=== PATIENT | male | born 1995 | race Caucasian/White ===

== ENCOUNTER → 2016-12-27 | Outpatient (CLI) | payer MEDICAID, OTHER ==
[2016-12-27 14:24] LABS: Basophils # (A) 0.1 k/uL (0-0.2); Basophils % (A) 1 %; CH 32.8; CHCM 35.8; Eosinophils # (A) 0.5 k/uL (0-0.7); Eosinophils % (A) 5 %; HCT 44.8 % (39.0-53.0); HDW 2.83; HGB 15.7 gm/dL (13.0-17.5); Luc # (Auto) 0.22; Luc % (Auto) 2; Lymphocytes # (A) 3.8 k/uL (1.0-4.8); Lymphocytes % (A) 42 %; MCH 32.3 pg (25.0-35.0); MCHC 35.1 g/dL (31.0-37.0); MCV 91.9 fL (80.0-100.0); Mean Platelet Volume 7.5; Monocytes # (A) 0.5 k/uL (0-1.0); Monocytes % (A) 5 %; Neutrophils % (A) 44 %; RBC 4.88 m/uL (4.30-5.90); WBC (Perox) 9.25
[2016-12-27 14:57] LABS: Bilirubin, Delta 0.3 mg/dL (0.0-0.2); Total Bilirubin 0.5 mg/dL (0.2-1.3); Total Protein 7.6 g/dL (6.3-8.2)
[2016-12-31 15:03] LABS: Hepatits C Virus RNA, Quant <12 IU/mL (<12); LOG HCV IU/mL <1.08 (<1.08)
== END | disposition home or self-care (01) ==
LOC: LABWHC1 13:35
PROVIDERS: ATTEND Physician Assistant
DX: B18.2 Chronic viral hepatitis C (principal)
CPT/HCPCS: 36415; 80076; 85025; 87522

== ENCOUNTER 2017-05-11 11:05 | Inpatient (IN) | payer MEDICAID, OTHER ==
--- NOTE | 2017-05-11 11:55 | ED ---
General Adult HPI - General Chief complaint: Psychiatric Symptoms Stated complaint: Mental Health Time Seen by Provider: 05/11/17 11:07 Source: patient, EMS, RN notes reviewed Mode of arrival: EMS - History of Present Illness Initial comments: 22 yo male presents to the ER with cc of hearing voices and suicidal thoughts. Patient states he was suicidal earlier he thought about these risks. He states that he still does have some thoughts but no plan. Patient states that he is hearing voices he states he is a constant chatter. He states the voices were telling him to hurt himself. Patient denies any homicidal ideation. Patient states he has been taking his medications. Patient states that he was concerned because of hearing voices and he just does not seem right we thought that he should be evaluated. Patient denies any recent fever, chills, shortness of breath, chest pain, back pain, abdominal pain, nausea vomiting, numbness or tingling, dysuria or hematuria, constipation or diarrhea, headaches or visual changes, or any other current symptoms. - Related Data Home Medications Medication Instructions Recorded Confirmed traMADol HCL [Ultram] 50 mg PO QID PRN 02/21/16 07/06/16 Previous Rx's Medication Instructions Recorded Gabapentin [Neurontin] 800 mg PO QID #60 tablet 06/19/16 Melatonin 6 mg PO HS tablet 06/19/16 Nicotine 21Mg/24Hr Patch [Habitrol] 1 patch TRANSDERM DAILY #14 patch 06/19/16 OLANZapine [ZyPREXA] 20 mg PO HS #30 tablet 06/19/16 buPROPion SR [Wellbutrin SR] 150 mg PO BID #60 tablet.er 06/19/16 Allergies Allergy/AdvReac Type Severity Reaction Status Date / Time No Known Allergies Allergy Verified 07/06/16 19:54 Review of Systems ROS Statement: Those systems with pertinent positive or pertinent negative responses have been documented in the HPI. ROS Other: All systems not noted in ROS Statement are negative. Past Medical History Past Medical History: Seizure Disorder Additional Past Medical History / Comment(s): autism/asperger's syndrome, scoliosis, hep c, history of IV drug abuse, pt states that the medication trileptal gave him sz at age 15 none since then History of Any Multi-Drug Resistant Organisms: None Reported Past Surgical History: Tonsillectomy Additional Past Anesthesia/Blood Transfusion Reaction / Comment(s): No history of prior surgeries. No previous blood transfusions. Past Psychological History: ADD/ADHD, Depression, Schizophrenia Smoking Status: Current every day smoker Past Alcohol Use History: None Reported Past Drug Use History: Cocaine, Heroin, IV Drug Use, Opiates - Past Family History Father Additional Family Medical History / Comment(s): Father is 52 years of age and has history of depression and fibromyalgia. Mother Additional Family Medical History / Comment(s): Mother is age 56 with history of anxiety. Brother(s) Additional Family Medical History / Comment(s): He has 2 brothers with no major medical problems. Patient has 1 sister with no major medical problems. He does not have any sisters. General Exam General appearance: alert, in no apparent distress Head exam: Present: atraumatic, normocephalic, normal inspection ENT exam: Present: normal exam, mucous membranes moist Neck exam: Present: normal inspection. Absent: tenderness, meningismus, lymphadenopathy Respiratory exam: Present: normal lung sounds bilaterally. Absent: respiratory distress, wheezes, rales, rhonchi, stridor Cardiovascular Exam: Present: regular rate, normal rhythm, normal heart sounds. Absent: systolic murmur, diastolic murmur, rubs, gallop, clicks GI/Abdominal exam: Present: soft, normal bowel sounds. Absent: distended, tenderness, guarding, rebound, rigid Neurological exam: Present: alert, oriented X3 Psychiatric exam: Present: suicidal ideation. Absent: homicidal ideation Skin exam: Present: warm, dry, intact, normal color. Absent: rash Course Vital Signs 05/11/17 11:22 Temperature 98.6 F Pulse Rate 120 H Respiratory 16 Rate Blood Pressure 145/74 O2 Sat by Pulse 99 Oximetry Medical Decision Making - Medical Decision Making 22-year-old male presents to the emergency department with a chief complaint of hearing voices and suicidal ideation. At this time patient does not have a plan. This time patient does not appear to be suffering from any acute medical emergencies. Patient is cleared to be evaluated by psychiatry. At this time patient was evaluated. This time patient will be admitted to psychiatric services. Patient is in agreement with this plan. Disposition Clinical Impression: Acute psychosis Disposition: TRANSFER TO PSYCH HOSP/UNIT Referrals: Stuart Meza MD [Primary Care Provider] - 1-2 days Time of Disposition: 13:06
[2017-05-11] MEDS ORDERED: LORazepam 1 MG TAB PO STA (13:48)
[2017-05-11] MEDS ORDERED: MAGNESIUM HYDROXIDE 2,400 MG/10 ML CUP PO PRN (13:51)
[2017-05-11] MEDS ORDERED: ACETAMINOPHEN TAB 325 MG TAB PO PRN (13:51)
[2017-05-11] MEDS ORDERED: MAG HYDROX/AL HYDROX/SIMETH 30 ML CUP PO PRN (13:51)
[2017-05-11] MEDS ORDERED: ZIPRASIDONE 20 MG VIAL IM PRN (13:51)
[2017-05-11] MEDS: GABAPENTIN 400 MG CAP PO SCH ×2 (17:10→21:38)
[2017-05-11] MEDS: MELATONIN 3 MG TABLET PO SCH (21:38)
[2017-05-11] MEDS: OLANZapine 10 MG TAB PO SCH (21:38)
[2017-05-11] MEDS: buPROPion SR 150 MG TABLET.ER PO SCH (21:38)
[2017-05-12] MEDS: GABAPENTIN 400 MG CAP PO SCH ×4 (08:15→21:15)
[2017-05-12] MEDS: NICOTINE 14MG/24HR PATCH TRANSDERM SCH (08:15)
[2017-05-12] MEDS: buPROPion SR 150 MG TABLET.ER PO SCH ×2 (08:15→20:45)
[2017-05-12] MEDS: traMADol 50 MG TAB PO PRN ×3 (08:16→18:25)
[2017-05-12 10:14] LABS: Basophils # (A) 0.1 k/uL (0-0.2); Basophils % (A) 1 %; CH 31.4; Eosinophils # (A) 0.3 k/uL (0-0.7); Eosinophils % (A) 2 %; HCT 49.5 % (39.0-53.0); HDW 2.58; HGB 16.2 gm/dL (13.0-17.5); Luc # (Auto) 0.16; Luc % (Auto) 1; Lymphocytes # (A) 2.1 k/uL (1.0-4.8); Lymphocytes % (A) 18 %; MCH 31.3 pg (25.0-35.0); MCHC 32.7 g/dL (31.0-37.0); MCV 95.7 fL (80.0-100.0); Mean Platelet Volume 7.4; Monocytes # (A) 0.3 k/uL (0-1.0); Monocytes % (A) 3 %; Neutrophils # (A) 8.9 k/uL (1.3-7.7); Neutrophils % (A) 75 %; RBC 5.18 m/uL (4.30-5.90); RDW 12.6 % (11.5-15.5); WBC 11.9 k/uL (3.8-10.6); WBC (Perox) 12.55
[2017-05-12 10:51] LABS: ALT 27 U/L (21-72); AST 27 U/L (17-59); Alkaline Phosphatase 101 U/L (38-126); Anion Gap 18 mmol/L; Blood Urea Nitrogen 17 mg/dL (9-20); Calcium 9.8 mg/dL (8.4-10.2); Carbon Dioxide 19 mmol/L (22-30); Chloride 104 mmol/L (98-107); Glucose 67 mg/dL (74-99); Non-African American GFR(MDRD) >60 (>60 ml/min/1.73 sqM); Potassium 4.5 mmol/L (3.5-5.1); Sodium 141 mmol/L (137-145)
[2017-05-12] MEDS ORDERED: METHYLPHENIDATE HCL 10 MG TAB PO SCH (12:00)
--- NOTE | 2017-05-12 16:05 | P.CON ---
Consult Note - . Consult date: 05/12/17 Assessment/Plan:: Chief complaint/reason for consult medical management and evaluation History of presenting illness. 22-year-old male who was seen and evaluated examined at the psychiatric unit while covering for Dr. Stuart Meza, 22 yo male presents to the ER with cc of hearing voices and suicidal thoughts. Patient states he was suicidal earlier he thought about these risks. He states that he still does have some thoughts but no plan. Patient states that he is hearing voices he states he is a constant chatter. He states the voices were telling him to hurt himself. Patient denies any homicidal ideation. Patient states he has been taking his medications. Patient states that he was concerned because of hearing voices and he just does not seem right we thought that he should be evaluated. Patient denies any recent fever, chills, shortness of breath, chest pain, back pain, abdominal pain, nausea vomiting, numbness or tingling, dysuria or hematuria, constipation or diarrhea, headaches or visual changes, or any other current symptoms. - Related Data Home Medications Medication Instructions Recorded Confirmed traMADol HCL [Ultram] 50 mg PO QID PRN 02/21/16 07/06/16 Previous Rx's Medication Instructions Recorded Gabapentin [Neurontin] 800 mg PO QID #60 tablet 06/19/16 Melatonin 6 mg PO HS tablet 06/19/16 Nicotine 21Mg/24Hr Patch [Habitrol] 1 patch TRANSDERM DAILY #14 patch 06/19/16 OLANZapine [ZyPREXA] 20 mg PO HS #30 tablet 06/19/16 buPROPion SR [Wellbutrin SR] 150 mg PO BID #60 tablet.er 06/19/16 Allergies Allergy/AdvReac Type Severity Reaction Status Date / Time No Known Allergies Allergy Verified 07/06/16 19:54 Review of Systems ROS Statement: Those systems with pertinent positive or pertinent negative responses have been documented in the HPI. ROS Other: All systems not noted in ROS Statement are negative. Past Medical History Past Medical History: Seizure Disorder Additional Past Medical History / Comment(s): autism/asperger's syndrome, scoliosis, hep c, history of IV drug abuse, pt states that the medication trileptal gave him sz at age 15 none since then History of Any Multi-Drug Resistant Organisms: None Reported Past Surgical History: Tonsillectomy Additional Past Anesthesia/Blood Transfusion Reaction / Comment(s): No history of prior surgeries. No previous blood transfusions. Past Psychological History: ADD/ADHD, Depression, Schizophrenia Smoking Status: Current every day smoker Past Alcohol Use History: None Reported Past Drug Use History: Cocaine, Heroin, IV Drug Use, Opiates - Past Family History Father Additional Family Medical History / Comment(s): Father is 52 years of age and has history of depression and fibromyalgia. Mother Additional Family Medical History / Comment(s): Mother is age 56 with history of anxiety. Brother(s) Additional Family Medical History / Comment(s): He has 2 brothers with no major medical problems. Patient has 1 sister with no major medical problems. He does not have any sisters. General Exam Blood pressure is 110/56, respiratory rate 16 pulse 75 temperature 90.7 saturation is 96% to 97% General appearance: alert, in no apparent distress Head exam: Present: atraumatic, normocephalic, normal inspection ENT exam: Present: normal exam, mucous membranes moist Neck exam: Present: normal inspection. Absent: tenderness, meningismus, lymphadenopathy Respiratory exam: Present: normal lung sounds bilaterally. Absent: respiratory distress, wheezes, rales, rhonchi, stridor Cardiovascular Exam: Present: regular rate, normal rhythm, normal heart sounds. Absent: systolic murmur, diastolic murmur, rubs, gallop, clicks GI/Abdominal exam: Present: soft, normal bowel sounds. Absent: distended, tenderness, guarding, rebound, rigid Neurological exam: Present: alert, oriented X3 Psychiatric exam: Present: suicidal ideation. Absent: homicidal ideation Skin exam: Present: warm, dry, intact, normal color. Absent: rash Labs reviewed white cell count is 11,900 hemoglobin and hematocrit 16 and 49, platelet count 311,000 BUN/creatinine 17 and 1.09 sodium 41 potassium 4.5 glucose 67, TSH is 1.1 Impression acute psychosis History of nicotine abuse Borderline hyperglycemia Stream mood disorder depression History of seizure disorder along with autism and Asperger's syndrome Hepatitis C with history of IV drug use From medical standpoint and will maintain and observe patient closely patient will require optimize psychiatric care will follow clinical course closely we' ll be available as needed
--- NOTE | 2017-05-12 16:41 | HP ---
HISTORY AND PHYSICAL DATE OF SERVICE: 05/12/2017. IDENTIFYING DATA: The patient is a 22-year-old male. He resides with his parents. He was admitted through the emergency room for evaluation. CHIEF COMPLAINT: The was hearing voices. He had suicide thoughts. He felt voices were telling him to hurt himself. He has had long-term problems with psychiatric issues. HISTORY OF PRESENTING ILLNESS: The patient has a diagnosis of autistic spectrum disorder. He has also been diagnosed with schizoaffective disorder. Social anxiety disorder and substance use disorder including cannabis, opioids, amphetamines and cocaine. he also has been diagnosed with ADHD. He has been followed through [facility]. His last medication appointment at [facility] was August 12, [address] Clay, Dr. Clay documented that he was doing fairly well. He acknowledged some craving of junk food. He was not having hallucinations, thoughts of self-harm or other mood difficulties. He was reporting smoking marijuana "occasionally but denies other street drugs or alcohol." Dr. Clay documented a past history of "opioid, amphetamine, cocaine and marijuana use, severe." He had used substances including heroin, cocaine and crystal meth and marijuana on a regular basis. He had started using marijuana and misusing Adderall around age 18. Along with that, he was taking cough syrup abusively. He acknowledges that when he does not take his medications appropriately he would turn to abusive substances to "self medicate." The patient reports that since August for most of this year he was doing fairly well. He described this as being where about 6 days of a typical week he had a reasonable mood. He functioned okay. He was calm and generally functioning well on a day-to-day basis. About once a week he would get into feeling distressed. He could really identify what would set that off. It was on those days that he might hear voices. He said for the most part, it was a mumbling kind of voice where he could not really discern the words. He said in the last month or 2 things have gotten worse for him. He identified as precipitants that he has had 3 friends in the last month. He acknowledges that all three of the friends were people who abused drugs and that were part of the social network when he abused drugs. He said they all of drug overdose. He currently has been receiving psychotropic medications from his primary care physician Dr. Meza. Current psychotropic medications include: 1. Wellbutrin SR 150 mg 3 times a day. 2. Zyprexa 20 mg a day. 3. Ritalin which had been 10 mg twice a day. Though was increased in the last week to 20 mg twice a day. 4. He also takes Neurontin 800 mg 4 times a day which he says seems to help calm him down. 5. In addition, he takes tramadol 50 mg 3 times a day for chronic back pain which he relates to scoliosis. He notes that he has trouble with social function. He says he has not been able to think about work because he feels too much stress when he gets into social settings. He says when he takes his methylphenidate it seems to help him feel calmer give him more energy and help him focus. He notes that his Wellbutrin had been increased from b.i.d. up to t.i.d., a few months ago. One factor relating to his hospitalization is that his parents were gone for the weekend and in that time it seemed to cause him quite a bit of distress to where he got into the hearing of voices and thinking about self-harm. He is admitted for further evaluation. SUBSTANCE USE HISTORY: As above. PAST MEDICAL HISTORY: The patient reports scoliosis. Further medical history and review of systems as per medical consultation. FAMILY AND SOCIAL HISTORY: The patient resides with his mother and father. He left school in the 10th grade. He said he left school because he struggled too much with the social situation. He says he does not do well with groups of people where he has to interact. He currently is not working though is applying for disability. He notes that he has an excessive appetite particularly in the evening time. He then will overeat and then it causes him trouble sleeping. He also uses an excessive amount of caffeine. MENTAL STATUS EXAM: Patient was somewhat unkempt in appearance. Eye contact was fair. He would look with good eye contact some of the time and then would look down or away at other times. He answered questions with direct responses. His thoughts were clear, he was somewhat spontaneous and interactive. His affect was somewhat blunted. He had an anxious manner. His mood was dysphoric. He seemed moderately distressed. On cognitive exam, he was oriented x3 and alert. He did make an effort to answer formal cognitive questions though he appeared to give a fairly good history of current and past events. Insight was fair. Judgment uncertain. Fund of knowledge and intellectual level average to mildly below average. PHYSICAL EXAMINATION: Physical exam as per medical consultation. DIAGNOSTIC STUDIES: CBC and comprehensive metabolic profile were unremarkable. Hemoglobin 16.2, MCV 95.7, creatinine 1.1. Glucose 67, TSH 1.15. ASSESSMENT: This 22-year-old male is diagnosed with mood disorder, likely impacted by his underlying autistic spectrum disorder. A significant factor may be simply the absence of his parents over the weekend. He has had past substance abuse issues which apparently have been contained. The patient being absent abstinent from substances. Social function appears quite limited. Social supports uncertain. Strengths include that the patient has insight about some of his difficulties. Weakness includes struggles with social function. DIAGNOSES: 1. Mood disorder, with psychotic features. 2. Rule out schizoaffective disorder. 3. Autistic spectrum disorder. 4. Substance use disorder including multiple substances possibly in remission. 5. Excessive caffeine use. 6. ADHD. 7. Scoliosis. RECOMMENDATIONS: Patient will be admitted for comprehensive medical psychiatric and psychosocial evaluation. We will engage the patient in individual and group therapeutic activities. I will continue the patient on his outpatient medications including Wellbutrin SR 150 mg 3 times a day. Zyprexa 20 mg a day. Ritalin 20 mg twice a day. He also will continue tramadol 50 mg 3 times a day and Neurontin 800 mg 4 times a day. There are significant concerns about his ongoing use of Ritalin as well as tramadol with the patient may experience as benefit from these medications is simply the short-term reduction in withdrawal symptoms with each dose relating to the inter dose. Of declining FREIGHT BOOKER levels of these medications, I would strongly encourage outpatient services to taper the patient off of both Ritalin and tramadol. I would work with the patient to engage in non pharmacologic treatment to manage his back issues. Along with that I would anticipate difficulty with focus and concentration in the short run. If he does withdrawal off tramadol and Ritalin I would look beyond 6-8 weeks for overall improvement. I had an extensive discussion with the patient in regards to getting on a program of frequent brief walks throughout the day to help improve body mechanics. We talked about areas where the patient might begin to find some direction in his life. He says he does have some artistic talents and might be able to utilize those possibly even within [facility] to support an art therapy process. We talked about his use of electronic devices to help improve his own ability to manage medications such as a cell phone beau which also might allow him to develop some skills that could translate into work opportunities. We talked about the option of some type of work situation that would allow him to be in a comfortable environment without the stress of significant social pressures. We will set up a family meeting with the patient's parents. I would possibly consider the use of clozapine if he does not stabilize with the current medications. Unfortunately if the patient continues on Ritalin and tramadol, that is likely to exacerbate some of his mood difficulties as well as social anxiety. We will coordinate with outpatient resources for treatment and discharge planning. SAMPSON / DONNY: [id number] /
[2017-05-12] MEDS: MELATONIN 3 MG TABLET PO SCH (20:45)
[2017-05-12] MEDS: OLANZapine 10 MG TAB PO SCH (20:45)
[2017-05-13] MEDS: NICOTINE 14MG/24HR PATCH TRANSDERM SCH (08:25)
[2017-05-13] MEDS: buPROPion SR 150 MG TABLET.ER PO SCH ×2 (08:25→21:06)
[2017-05-13] MEDS: GABAPENTIN 400 MG CAP PO SCH ×4 (08:25→21:06)
[2017-05-13] MEDS: traMADol 50 MG TAB PO PRN ×3 (08:27→21:07)
[2017-05-13] MEDS ORDERED: METHYLPHENIDATE HCL 10 MG TAB PO SCH (12:30)
--- NOTE | 2017-05-13 13:09 | P.PN ---
Progress Note - Text Progress Note Date: 05/13/17 22yo CM admitted on 05/11/17 after presenting with c/o AH telling him to hurt himself. This was also in the context of gradually declining mood over the course of a month secondary to grief related to the of three friends. He lives with his parents and they were absent from the home over the weekend that patient was admitted. Last 24hrs: Upon presentation this morning, pt states that he is in a "good" mood and requesting to be discharged. Reports that he feels his reason for hospitalization was "dealing with grief and anger". He states that he is no longer experiencing AH and/or SI. He has been sleeping fairly well and compliant with his medications. States that he was previously taking Ritalin 20mg BID; however, CANDACE Hurt spoke with a brewery representative from pt's pharmacy ([facility]) as well as our hospital pharmacy and it was stated that pt was prescribed Ritalin 10mg BID from his PCP. He is attending daily groups. MSE: Pt appears stated age. He is fairly well-groomed. Pt ambulating well without assistance. Behavior is cooperative but is somewhat child-like. His speech is of normal rate and volume. Pt has good eye contact. Mood is "good" and affect appropriate. He denies SI at this time. Thought process is linear and logical. Memory grossly intact. Oriented x 3. Assessment: 1. Autistic Spectrum Disorder 2. Unspecified mood disorder 3. ADHD 4. h/o Substance Use Disorder 5. Scoliosis Plan: Start Ritalin 10mg PO BID as previously prescribed. Continue Melatonin and Olanzapine. Discuss discharge planning with treatment team. SW scheduled family meeting for today at 1pm. Possible discharge tomorrow if family meeting goes well. Continue to monitor for safety. Encourage participation in daily groups and acclimation to current milieu. Agree with Dr. Bangura's recommendation for patient to eventually be tapered off of stimulant and narcotic pain medication on an outpatient basis due to his h/o substance abuse.
[2017-05-13] MEDS: MELATONIN 3 MG TABLET PO SCH (21:06)
[2017-05-13] MEDS: OLANZapine 10 MG TAB PO SCH (21:06)
[2017-05-14 06:27] VITALS: BP 93/46; PULSE 80; RESP 12; TEMP 97.8
[2017-05-14] MEDS ORDERED: METHYLPHENIDATE HCL 10 MG TAB PO SCH (07:30)
[2017-05-14] MEDS: buPROPion SR 150 MG TABLET.ER PO SCH (08:05)
[2017-05-14] MEDS: GABAPENTIN 400 MG CAP PO SCH (08:05)
[2017-05-14] MEDS: NICOTINE 14MG/24HR PATCH TRANSDERM SCH (08:05)
[2017-05-14] MEDS: traMADol 50 MG TAB PO PRN (08:07)
--- NOTE | 2017-05-14 16:58 | P.PN ---
Progress Note - Text Progress Note Date: 05/14/17 22yo CM admitted on 05/11/17 after presenting with c/o AH telling him to hurt himself. This was also in the context of gradually declining mood over the course of a month secondary to grief related to the of three friends. He lives with his parents and they were absent from the home over the weekend that patient was admitted. Last 24hrs: Upon presentation this morning, pt states that his mood continues to be "good". He is looking forward to being discharged. SW spoke with patient's mother yesterday and she was in agreement with plan to discharge. He denies auditory hallucinations and suicidal ideations. He has been sleeping well and compliant with his medications. No reported behavioral disturbances overnight. He has been attending daily groups. MSE: Pt appears stated age. He is fairly well-groomed. Pt ambulating well without assistance. Behavior is cooperative but is somewhat child-like. His speech is of normal rate and volume. Pt has good eye contact. Mood is "good" and affect appropriate. He denies SI at this time. Thought process is linear and logical. Memory grossly intact. Oriented x 3. Assessment: 1. Autistic Spectrum Disorder 2. Unspecified mood disorder 3. ADHD 4. h/o Substance Use Disorder 5. Scoliosis Plan: Discharge patient to home with mother. Continue current medications as prescribed. Consider tapering off of pain medications and stimulants on an outpatient basis.
--- NOTE | 2017-05-14 17:09 | P.DS ---
Providers Date of admission: 05/11/17 13:47 Expected date of discharge: 05/14/17 Attending physician: Maura Shirley DO Consults: 05/11/17 13:51 Consult Physician Routine Consulting Provider: Stuart Meza Reason/Comments: follow up H & P Do you want consulting provider notified?: Yes Primary care physician: Marco Antonio Bangura - Discharge Diagnosis(es) (1) Autism spectrum disorder Status: Acute (2) Unspecified mood [affective] disorder Status: Acute Hospital Course: Upon admission, patient was continued on his home medication regimen of Wellbutrin SR 150mg TID, Tramadol 50mg TID and Neurontin 800mg QID. There was some confusion regarding his Ritalin dose as pt stated that he had been prescribed 20mg BID; however, after speaking with a outside sales representative insurance from [facility] and the hospital pharmacy, pt's last prescribe dose was 10mg BID. Therefore, this dose was continued during hospitalization. There was some concern of long-term use of stimulants and pain medications with this patient given his h/o substance use in the past and it was recommended that patient be tapered off of these medications on an outpatient basis in the future. Shortly after admission, pt stated that he no longer had suicidal ideation and regretted his decision to be admitted. Patient stated that he felt his anger and grief caused him to have the episode of SI and AH. He continued to adamantly deny active plan or intent. Also, denies experiencing auditory hallucinations throughout his hospital stay. Patient was cooperative while on the unit and did not display any behavioral disturbances. He regularly attended group activities, slept well and had a good appetite. At this time patient is stable for discharge to home and strongly encourage psychiatric follow-up for further medication managment as well as individual psychotherapy to aide in fostering of more adaptive coping skills. Patient Condition at Discharge: Good Plan - Discharge Summary New Discharge Prescriptions: New Melatonin 6 mg PO HS #60 tab OLANZapine [ZyPREXA] 20 mg PO HS #30 tab Continue traMADol HCL [Ultram] 50 mg PO TID PRN PRN Reason: Pain Gabapentin [Neurontin] 800 mg PO QID #60 tablet Methylphenidate HCl [Ritalin] 10 mg PO BID buPROPion XL [Wellbutrin XL] 150 mg PO TID #90 Discontinued OLANZapine [ZyPREXA] 20 mg PO HS #30 tablet Discharge Medication List traMADol HCL [Ultram] 50 mg PO TID PRN 02/21/16 [History] Gabapentin [Neurontin] 800 mg PO QID #60 tablet 06/19/16 [Rx] Methylphenidate HCl [Ritalin] 10 mg PO BID 05/11/17 [History] Melatonin 6 mg PO HS #60 tab 05/14/17 [Rx] OLANZapine [ZyPREXA] 20 mg PO HS #30 tab 05/14/17 [Rx] buPROPion XL [Wellbutrin XL] 150 mg PO TID #90 05/14/17 [Rx] Follow up Appointment(s)/Referral(s): [facility] [Outside] - 05/20/17 3:30 pm (05-20-17 @ 3:30 with Shell Suarez. ) Stuart Meza MD [STAFF PHYSICIAN] - 1-2 days Patient Instructions/Handouts: Depression (GEN), Brief Psychotic Disorder (GEN) , Suicide Prevention for Adults (GEN) Activity/Diet/Wound Care/Special Instructions: Activity and diet as tolerated. Avoid the use of street drugs and alcohol. Take all medications as prescribed. When you are in need of refills on your medications please contact your medical provider and/or outpatient psychiatrist to have this done. Please go to your scheduled outpatient appointment for aftercare treatment. If symptoms return or become worse please call the crisis line at and/or go to the nearest emergency room for an evaluation. Discharge Disposition: HOME SELF-CARE
== END 2017-05-14 09:50 | disposition home or self-care (01) | DRG 753 ==
LOC: EC 11:05 → 3MHU 13:47
PROVIDERS: ADMIT Psychiatry & Neurology Psychiatry; ATTEND Psychiatry & Neurology Psychiatry
DX: F39 Unspecified mood [affective] disorder (principal); M41.9 Scoliosis, unspecified; R45.851 Suicidal ideations; F23 Brief psychotic disorder; F25.9 Schizoaffective disorder, unspecified; B19.20 Unspecified viral hepatitis C without hepatic coma; F12.90 Cannabis use, unspecified, uncomplicated; F17.200 Nicotine dependence, unspecified, uncomplicated; F40.10 Social phobia, unspecified; F84.5 Asperger's syndrome; F90.9 Attention-deficit hyperactivity disorder, unspecified type; G40.909 Epilepsy, unspecified, not intractable, without status epilepticus; G89.29 Other chronic pain; R73.9 Hyperglycemia, unspecified; Z79.899 Other long term (current) drug therapy; Z81.8 Family history of other mental and behavioral disorders
CPT/HCPCS: 80053; 82075; 84443; 85025; 99285

== ENCOUNTER 2018-01-23 13:15 | Emergency (ER) | payer OTHER ==
[2018-01-23 13:22] VITALS: RESP 18; TEMP 98.5
[2018-01-23] MEDS ORDERED: ACETAMINOPHEN TAB 500 MG TAB PO STA (14:36)
--- NOTE | 2018-01-23 15:03 | XR ---
EXAMINATION TYPE: XR ankle complete LT DATE OF EXAM: 01/23/2018 COMPARISON: NONE HISTORY: Pain FINDINGS: Three views of the ankle demonstrate the ankle mortise to be intact and symmetric. The joint spaces are preserved. The osseous structures are intact. Sclerotic density involving the calcaneus compati ble with bone island. IMPRESSION: 1. No definite acute fracture or dislocation, if symptoms persist follow-up study in 7 to 10 days wou ld be suggested.
--- NOTE | 2018-01-23 15:04 | XR ---
EXAMINATION TYPE: XR foot complete LT DATE OF EXAM: 01/23/2018 COMPARISON: NONE HISTORY: Pain TECHNIQUE: Three views are submitted. FINDINGS: The osseous structures are intact. There is no acute fracture or dislocation. Joint spaces are p reserved. Sclerotic density overlying the calcaneus compatible with bone IMPRESSION: 1. No acute fracture or dislocation. If symptoms persist, follow-up exam in 7 to 10 days could be ob tained.
--- NOTE | 2018-01-23 15:06 | XR ---
EXAMINATION TYPE: XR hand complete RT DATE OF EXAM: 01/23/2018 COMPARISON: NONE HISTORY: Pain TECHNIQUE: Three views are submitted. FINDINGS: The osseous structures are intact. The joint spaces are preserved and there is no acute fracture or dislocation. Sclerotic density overlying the scaphoid likely related to bone island. IMPRESSION: 1. No definite acute fracture or dislocation if symptoms persist, follow-up study in 7 to 10 days wo uld be suggested
--- NOTE | 2018-01-23 15:06 | XR ---
EXAMINATION TYPE: XR wrist complete RT DATE OF EXAM: 01/23/2018 CLINICAL HISTORY: Pain after fall injury TECHNIQUE: Frontal, lateral, scaphoid, and oblique images of the right wrist are obtained. COMPARISON: Same day right hand x-ray. FINDINGS: There is no acute fracture/dislocation evident in the right wrist. The joint spaces in th e right wrist appear within normal limits. The overlying soft tissue appears unremarkable. Nonspecif ic sclerotic lesion radial aspect distal scaphoid favors benign bone island. IMPRESSION: There is no acute fracture or dislocation in the right wrist.
--- NOTE | 2018-01-23 16:16 | ED ---
Fall HPI - General Chief Complaint: Fall Stated Complaint: Fall Time Seen by Provider: 01/23/18 14:06 Source: EMS Mode of arrival: EMS - History of Present Illness Initial Comments: 22-year-old male presenting for evaluation of right wrist/hand pain and left foot pain. He states that he was in his garage walking outside however the lites returned off and he tripped over some trash cans and fell forward. He denies hitting his head or neck and states there are no other injuries with the exception of the right hand and left ankle. He believes that he twisted the ankle and he fell on the hand. He has been taking Motrin and Tylenol and marijuana for pain control however states that in the 2 days since his abdomen he is continued to have pain. Denies decreased range of motion of either extremity however he does have erythema to the dorsal aspect of the right hand. Denies any other abnormalities. - Related Data Home Medications Medication Instructions Recorded Confirmed traMADol HCL [Ultram] 50 mg PO TID PRN 02/21/16 01/23/18 Dextroamphetamine/Amphetamine 30 mg PO BID 01/23/18 01/23/18 [Adderall] Previous Rx's Medication Instructions Recorded Gabapentin [Neurontin] 800 mg PO QID #60 tablet 06/19/16 OLANZapine [ZyPREXA] 20 mg PO HS #30 tab 05/14/17 Allergies Allergy/AdvReac Type Severity Reaction Status Date / Time No Known Allergies Allergy Verified 01/23/18 13:46 Review of Systems ROS Statement: Those systems with pertinent positive or pertinent negative responses have been documented in the HPI. ROS Other: All systems not noted in ROS Statement are negative. Constitutional: Denies: fever, chills Eyes: Denies: eye pain, vision change ENT: Denies: ear pain, throat pain Respiratory: Denies: cough, dyspnea Cardiovascular: Denies: chest pain, palpitations Endocrine: Denies: fatigue, polydipsia Gastrointestinal: Denies: abdominal pain, nausea, vomiting Genitourinary: Denies: urgency, dysuria Musculoskeletal: Reports: arthralgia. Denies: back pain, myalgia Skin: Denies: rash, lesions Neurological: Denies: headache, weakness Psychiatric: Denies: anxiety, depression Hematological/Lymphatic: Denies: easy bleeding, easy bruising Past Medical History Past Medical History: Seizure Disorder Additional Past Medical History / Comment(s): autism/asperger's syndrome, scoliosis, hep c, history of IV drug abuse, pt states that the medication trileptal gave him sz at age 15 none since then History of Any Multi-Drug Resistant Organisms: None Reported Past Surgical History: Tonsillectomy Additional Past Anesthesia/Blood Transfusion Reaction / Comment(s): No history of prior surgeries. No previous blood transfusions. Past Psychological History: ADD/ADHD, Depression, Schizophrenia Smoking Status: Current every day smoker Past Alcohol Use History: None Reported Past Drug Use History: Cocaine, Heroin, IV Drug Use, Opiates - Past Family History Father Additional Family Medical History / Comment(s): Father is 52 years of age and has history of depression and fibromyalgia. Mother Additional Family Medical History / Comment(s): Mother is age 56 with history of anxiety. Brother(s) Additional Family Medical History / Comment(s): He has 2 brothers with no major medical problems. Patient has 1 sister with no major medical problems. He does not have any sisters. General Exam Limitations: no limitations General appearance: alert, in no apparent distress Head exam: Present: atraumatic, normocephalic Eye exam: Present: normal appearance, EOMI ENT exam: Present: normal exam, normal oropharynx Neck exam: Present: normal inspection. Absent: tenderness Respiratory exam: Present: normal lung sounds bilaterally. Absent: respiratory distress Cardiovascular Exam: Present: normal rhythm, tachycardia GI/Abdominal exam: Present: soft. Absent: distended, tenderness, guarding, rebound, rigid Rectal exam: Present: deferred Extremities exam: Present: full ROM, tenderness (dorsal aspect of right hand), normal capillary refill. Absent: pedal edema, joint swelling, calf tenderness Back exam: Present: normal inspection, full ROM Neurological exam: Present: alert, oriented X3 Psychiatric exam: Present: normal affect, normal mood Skin exam: Present: warm, dry, intact Course Vital Signs 01/23/18 01/23/18 13:18 16:27 Temperature 98.5 F Pulse Rate 114 H 104 H Respiratory 18 18 Rate Blood Pressure 144/76 124/58 O2 Sat by Pulse 99 96 Oximetry Medical Decision Making - Medical Decision Making 22-year-old male presenting for evaluation of right hand pain and left foot pain. On physical examination he appears be in no apparent distress and vitals signs are stable. There is erythema and swelling to the dorsal aspect of the right hand but he has full range of motion of the fingers and the wrist. Pulses are intact and there is no tenderness to the anatomical snuffbox. Patient has normal gait and station and there are no abnormalities noted on exam of the left foot/ankle. X-rays revealed no significant abnormalities and on repeat evaluation there is no change. He was informed of all results and through shared decision making it was determined that he be discharged with instructions to follow-up with his primary care physician but to return to this facility if his symptoms should worsen or persist. The patient acknowledged an understanding of all information provided and agreed with this plan of care. Disposition Clinical Impression: Fall, Right hand pain, Left ankle pain Disposition: HOME SELF-CARE Condition: Stable Instructions: Cannabis Abuse (ED), Methamphetamine Abuse (ED), Polysubstance Abuse (ED) Additional Instructions: Please follow up with your primary care physician this coming week. If your pain continues or worsens you should seek further evaluation for repeat xrays in 7-10 days as there may be a fracture that was not apparent on these xrays today. Take motrin and tylenol for your pain. Is patient prescribed a controlled substance at d/c from ED?: No Referrals: Stuart Meza MD [Primary Care Provider] - 1-2 days Time of Disposition: 16:16
[2018-01-23 16:28] VITALS: BP 124/58; PULSE 104
== END 2018-01-23 16:28 | disposition home or self-care (01) ==
LOC: EC 13:15
DX: M79.641 Pain in right hand (principal); M25.572 Pain in left ankle and joints of left foot; R10.9 Unspecified abdominal pain; F90.9 Attention-deficit hyperactivity disorder, unspecified type; F17.200 Nicotine dependence, unspecified, uncomplicated; Z79.899 Other long term (current) drug therapy; W01.0XXA Fall on same level from slipping, tripping and stumbling without subsequent striking against object, initial encounter; Y93.01 Activity, walking, marching and hiking; Y92.59 Other trade areas as the place of occurrence of the external cause
CPT/HCPCS: 99283

== ENCOUNTER 2021-07-31 16:08 | Inpatient (IN) | payer MEDICAID, OTHER ==
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
[2021-07-31] MEDS ORDERED: GABAPENTIN 300 MG CAP PO STA (18:49)
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
[2021-07-31 19:17] LABS: Amphetamine Screen,Urine Detected (NotDetected); Barbiturate Screen,Urine Not Detected (NotDetected); Benzodiazepines Screen,Urine Detected (NotDetected); Cocaine Screen,Urine Not Detected (NotDetected); Methadone Screen, Urine Not Detected (NotDetected); Opiate Screen,Urine Detected (NotDetected); Oxycodone Screen, Urine Not Detected (NotDetected); Phencyclidine Screen,Urine Not Detected (NotDetected); Tricyclic Antidepressant,Urine Not Detected (NotDetected); Urn Cannabinoid Scrn Detected (NotDetected)
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
[2021-07-31] MEDS ORDERED: ACETAMINOPHEN TAB 500 MG TAB PO STA (19:29)
[2021-07-31] MEDS ORDERED: MAGNESIUM HYDROXIDE 2,400 MG/10 ML CUP PO PRN (22:09)
[2021-07-31] MEDS ORDERED: MAG HYDROX/AL HYDROX/SIMETH 30 ML CUP PO PRN (22:09)
[2021-07-31] MEDS ORDERED: LORazepam 2 MG/ML INJ IM PRN (22:13)
[2021-07-31] MEDS ORDERED: haloperidoL 5 MG TAB PO PRN (22:13)
[2021-07-31] MEDS ORDERED: HALOPERIDOL LACTATE 5 MG/ML 1 ML VIAL IM PRN (22:13)
[2021-07-31] MEDS: OLANZapine 10 MG TAB PO SCH (23:12)
[2021-07-31] MEDS: traMADol 50 MG TAB PO PRN (23:12)
[2021-07-31] MEDS: LORazepam 1 MG TAB PO PRN (23:15)
[2021-08-01 07:28] LABS: ALT 37 U/L (4-49); AST 48 U/L (17-59); African American GFR (CKD) >90 (>60 ml/min/1.73 sqM); Albumin 4.3 g/dL (3.5-5.0); Alkaline Phosphatase 92 U/L (38-126); Anion Gap 7 mmol/L; Blood Urea Nitrogen 8 mg/dL (9-20); Calcium 9.8 mg/dL (8.4-10.2); Carbon Dioxide 29 mmol/L (22-30); Chloride 103 mmol/L (98-107); Glucose 91 mg/dL (74-99); Non-African American GFR(CKD) >90 (>60 ml/min/1.73 sqM); Potassium 3.7 mmol/L (3.5-5.1); Sodium 139 mmol/L (137-145); Total Bilirubin 0.9 mg/dL (0.2-1.3); Total Protein 7.1 g/dL (6.3-8.2)
[2021-08-01 07:42] LABS: Basophils # (A) 0.1 k/uL (0-0.2); Basophils % (A) 1 %; Eosinophils # (A) 0.5 k/uL (0-0.7); Eosinophils % (A) 6 %; HCT 48.1 % (39.0-53.0); HGB 16.1 gm/dL (13.0-17.5); Lymphocytes # (A) 4.9 k/uL (1.0-4.8); Lymphocytes % (A) 56 %; MCH 32.7 pg (25.0-35.0); MCHC 33.4 g/dL (31.0-37.0); MCV 98.1 fL (80.0-100.0); Mean Platelet Volume 9.9; Monocytes # (A) 0.6 k/uL (0-1.0); Monocytes % (A) 6 %; Neutrophils # (A) 2.3 k/uL (1.3-7.7); Neutrophils % (A) 27 %; Platelet Count 209 k/uL (150-450); RBC 4.91 m/uL (4.30-5.90); WBC 8.6 k/uL (3.8-10.6)
[2021-08-01] MEDS: traMADol 50 MG TAB PO PRN ×2 (08:45→18:16)
[2021-08-01] MEDS: NICOTINE 14MG/24HR PATCH TRANSDERM SCH (08:45)
[2021-08-01] MEDS: GABAPENTIN 300 MG CAP PO SCH ×4 (08:45→21:05)
[2021-08-01] MEDS: ACETAMINOPHEN TAB 325 MG TAB PO PRN ×2 (13:18→18:17)
[2021-08-01] MEDS: LORazepam 1 MG TAB PO PRN ×2 (13:18→21:29)
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
[2021-08-01 18:13] LABS: Chol/HDL Ratio 4.77 Ratio
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
[2021-08-01] MEDS: OLANZapine 10 MG TAB PO SCH (20:46)
[2021-08-02] MEDS: traMADol 50 MG TAB PO PRN ×2 (06:48→14:18)
[2021-08-02] MEDS: ACETAMINOPHEN TAB 325 MG TAB PO PRN ×3 (06:48→19:19)
[2021-08-02] MEDS: NICOTINE 14MG/24HR PATCH TRANSDERM SCH (08:56)
[2021-08-02] MEDS: GABAPENTIN 300 MG CAP PO SCH ×4 (08:57→21:35)
[2021-08-02] MEDS: LORazepam 1 MG TAB PO PRN ×2 (11:27→21:35)
--- NOTE | 2021-08-02 12:05 | P.PN ---
Progress Note - Text Progress Note Date: 08/02/21 Interval History: Patient was seen resting in bed and was directable and agreeable to speak with advertising copywriter in the office. The patient does express that he is feeling better today. He reports that he contemplated on what was said to him yesterday. He does agree that the overdose and Adderall contributed to his agitation which led to this admission. He is currently not endorsing any suicidal or homicidal ideation, intention, and/or plan. He is not reporting any auditory or visual hallucinations. He is denying any paranoia or other delusions. The patient does express that he has been feeling significant depression for most of his life which she attributes to his heavy drug use and early age. The patient does find benefit from his Zyprexa in terms of managing any kind of racing thoughts and to help him unwind prior to bedtime however does express concern for weight gain. He is agreeable to transition to [facility] [place] at this time. Mental Status Exam: General Appearance: Patient appears to be stated age is alert, directable, and cooperative. Obese body habitus. Unkempt hair and gruber. Behavior: Patient is calmly seated without any agitated behavior. Eye contact is appropriate. Speech: Patient's speech is fluent and nonpressured. Mood/Affect: Mood is improving mildly, affect is congruent and constricted. Suicidality/Homicidality: Patient denies having any suicidal or homicidal ideation intent or plan. Perceptions: Patient denies any visual hallucinations and denies any auditory hallucinations Though content/process: There is no evidence of any delusional thought content and thought process is linear and goal-directed. Memory and concentration: AOX3, grossly intact for the purposes of this session Judgment and insight: Improving mildly Vital Signs Temp 97.7 F 08/02/21 06:46 Pulse 122 H 08/02/21 11:27 Resp 16 08/02/21 06:46 BP 130/93 08/02/21 11:27 Pulse Ox 97 08/01/21 08:45 Laboratory Results - Last 24 Hours 08/01/21 08/01/21 06:56 06:[address] Glu mg/dL 103 Hemoglobin A1c 5.2 Triglycerides 137.00 Cholesterol 232.00 H LDL Cholesterol, Calc 156.0 H VLDL Cholesterol, Calc 27.40 HDL Cholesterol 48.60 Cholesterol/HDL Ratio 4.77 Assessment Acute bereavement Acute stress reaction Bipolar disorder, unspecified Autism spectrum disorder Amphetamine abuse Opiate use disorder Nicotine dependence History of polysubstance abuse Plan: -Patient continues to meet criteria for inpatient psychiatric admission for symptom stabilization and safety. Patient has signed adult voluntary form and medication consent and was placed in patient's chart. -Medications: Continue gabapentin 300 mg by mouth 4 times a day profitably is for anxiety and neuropathic pain Decrease Zyprexa to 10 mg at bedtime and start Geodon 20 mg by mouth twice a day with meals as we cross titrate these medications to address mood stability as well as weight gain Continue to hold Adderall. Discontinue this medication in the outpatient setting. -When necessary Ativan and Haldol for agitation/aggression. -NRT - nicotine patch -SW on board for discharge planning. Encouraged the patient to participate in milieu.
--- NOTE | 2021-08-02 12:15 | P.PN ---
Progress Note - Text Progress Note Date: 08/02/21 Interval History: Patient was seen resting in bed and was directable and agreeable to speak with check writer in the office. The patient does express that he is feeling better today. He reports that he contemplated on what was said to him yesterday. He does agree that the overdose and Adderall contributed to his agitation which led to this admission. He is currently not endorsing any suicidal or homicidal ideation, intention, and/or plan. He is not reporting any auditory or visual hallucinations. He is denying any paranoia or other delusions. The patient does express that he has been feeling significant depression for most of his life which she attributes to his heavy drug use and early age. The patient does find benefit from his Zyprexa in terms of managing any kind of racing thoughts and to help him unwind prior to bedtime however does express concern for weight gain. He is agreeable to transition to [facility] at this time. Mental Status Exam: General Appearance: Patient appears to be stated age is alert, directable, and cooperative. Obese body habitus. Unkempt hair and gruber. Behavior: Patient is calmly seated without any agitated behavior. Eye contact is appropriate. Speech: Patient's speech is fluent and nonpressured. Mood/Affect: Mood is improving mildly, affect is congruent and constricted. Suicidality/Homicidality: Patient denies having any suicidal or homicidal ideation intent or plan. Perceptions: Patient denies any visual hallucinations and denies any auditory hallucinations Though content/process: There is no evidence of any delusional thought content and thought process is linear and goal-directed. Memory and concentration: AOX3, grossly intact for the purposes of this session Judgment and insight: Improving mildly Vital Signs Temp 97.7 F 08/02/21 06:46 Pulse 122 H 08/02/21 11:27 Resp 16 08/02/21 06:46 BP 130/93 08/02/21 11:27 Pulse Ox 97 08/01/21 08:45 Laboratory Results - Last 24 Hours 08/01/21 08/01/21 06:56 06:[address] Glu mg/dL 103 Hemoglobin A1c 5.2 Triglycerides 137.00 Cholesterol 232.00 H LDL Cholesterol, Calc 156.0 H VLDL Cholesterol, Calc 27.40 HDL Cholesterol 48.60 Cholesterol/HDL Ratio 4.77 Assessment Acute bereavement Acute stress reaction Bipolar disorder, unspecified Autism spectrum disorder Amphetamine abuse Opiate use disorder Nicotine dependence History of polysubstance abuse Plan: -Patient continues to meet criteria for inpatient psychiatric admission for symptom stabilization and safety. Patient has signed adult voluntary form and medication consent and was placed in patient's chart. -Medications: Continue gabapentin 300 mg by mouth 4 times a day profitably is for anxiety and neuropathic pain Decrease Zyprexa to 10 mg at bedtime and start Geodon 20 mg by mouth twice a day with meals as we cross titrate these medications to address mood stability as well as weight gain Continue to hold Adderall. Discontinue this medication in the outpatient setting. -We will contact JEN and Dr Maher's office to make them aware of the patient's abuse and overdose of adderall as well as the admitted illicit use of opiates on top of his prescribed tramadol. Currently [facility] system is not allowing for care notes to be placed and Dr Oliveira's office is closed for the holiday. -When necessary Ativan and Haldol for agitation/aggression. -NRT - nicotine patch -SW on board for discharge planning. Encouraged the patient to participate in milieu.
--- NOTE | 2021-08-02 13:01 | PN ---
PROGRESS NOTE [id number]-old white male is feeling much better. suicidal, homicidal. Apparently Zyprexa is helping his racing thoughts. Vital signs stable. Afebrile. Cardiovascular S1, S2. Lungs clear. GI soft. ASSESSMENT: 1. Acute bereavement. 2. Acute stress reaction. 3. Bipolar. 4. Autism. 5. History of attention deficit disorder. 6. Nicotine addiction. Psych is evaluating his psych medications. Continue with gabapentin 300 q.i.d., Geodon, Zyprexa. No Adderall will be given and will stop it as an outpatient. Bereavement reaction most likely is a trigger. Prognosis is guarded. MMODL / IJN: [id number] /
[2021-08-02] MEDS: ZIPRASIDONE 20 MG CAP PO SCH (19:19)
[2021-08-02] MEDS ORDERED: OLANZapine 10 MG TAB PO SCH (21:00)
[2021-08-02] MEDS: traZODone HCL 50 MG TAB PO PRN (21:35)
[2021-08-02] MEDS ORDERED: LOPERAMIDE 2 MG CAP PO PRN (22:17)
[2021-08-02] MEDS ORDERED: chlordiazePOXIDE 25 MG CAP PO STA (22:30)
[2021-08-02] MEDS: chlordiazePOXIDE 25 MG CAP PO SCH (23:00)
[2021-08-03] MEDS: chlordiazePOXIDE 25 MG CAP PO SCH ×3 (08:26→19:46)
[2021-08-03] MEDS: GABAPENTIN 300 MG CAP PO SCH ×4 (08:26→19:46)
[2021-08-03] MEDS: ZIPRASIDONE 20 MG CAP PO SCH ×2 (08:27→17:14)
[2021-08-03] MEDS: NICOTINE 14MG/24HR PATCH TRANSDERM SCH (08:27)
[2021-08-03] MEDS: LORazepam 1 MG TAB PO PRN ×2 (08:28→14:51)
[2021-08-03] MEDS: traMADol 50 MG TAB PO PRN ×2 (08:52→17:16)
--- NOTE | 2021-08-03 11:29 | P.PN ---
Progress Note - Text Progress Note Date: 08/03/21 Interval History: Patient was seen resting in bed and was directable and agreeable to speak with technical proposal writer in the office. The patient does express that he is feeling fine. He does not notice any significant changes with his medication regimen. 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 He is not reporting any suicidal or homicidal ideation, intention, and/or plan. He is not reporting any auditory or visual hallucinations. He reports no issues regarding sleep or his appetite. He is not reporting any significant side effects of the medication. Mental Status Exam: General Appearance: Patient appears to be stated age is alert, directable, and cooperative. Obese body habitus. Unkempt hair and gruber. Behavior: Patient is calmly seated without any agitated behavior. Eye contact is appropriate. Speech: Patient's speech is fluent and nonpressured. Mood/Affect: Mood is improving mildly, affect is congruent and constricted. Suicidality/Homicidality: Patient denies having any suicidal or homicidal ideation intent or plan. Perceptions: Patient denies any visual hallucinations and denies any auditory hallucinations Though content/process: There is no evidence of any delusional thought content and thought process is linear and goal-directed. Memory and concentration: AOX3, grossly intact for the purposes of this session Judgment and insight: Improving mildly Vital Signs Temp 97.7 F 08/02/21 06:46 Pulse 117 H 08/03/21 08:28 Resp 16 08/02/21 06:46 BP 132/66 08/03/21 08:28 Pulse Ox 97 08/01/21 08:45 Assessment Acute bereavement Acute stress reaction Bipolar disorder, unspecified Autism spectrum disorder Amphetamine abuse Opiate use disorder Nicotine dependence History of polysubstance abuse Plan: -Patient continues to meet criteria for inpatient psychiatric admission for symptom stabilization and safety. Patient has signed adult voluntary form and medication consent and was placed in patient's chart. -Medications: Continue gabapentin 300 mg by mouth 4 times a day profitably is for anxiety and neuropathic pain Decrease Zyprexa to 5 mg at bedtime and start Geodon 40 mg by mouth twice a day with meals as we cross titrate these medications to address mood stability as well as weight gain Continue to hold Adderall. Discontinue this medication in the outpatient setting -When necessary Ativan and Haldol for agitation/aggression. -NRT - nicotine patch -SW on board for discharge planning. Encouraged the patient to participate in milieu.
[2021-08-03] MEDS: ACETAMINOPHEN TAB 325 MG TAB PO PRN (12:49)
[2021-08-03] MEDS ORDERED: OLANZapine 5 MG TAB PO SCH (21:00)
[2021-08-03] MEDS: traZODone HCL 50 MG TAB PO PRN (22:01)
[2021-08-04] MEDS: LORazepam 1 MG TAB PO PRN ×3 (01:10→17:48)
[2021-08-04] MEDS: chlordiazePOXIDE 25 MG CAP PO SCH ×3 (08:50→21:05)
[2021-08-04] MEDS: NICOTINE 14MG/24HR PATCH TRANSDERM SCH (08:50)
[2021-08-04] MEDS: ZIPRASIDONE 20 MG CAP PO SCH ×2 (08:51→17:48)
[2021-08-04] MEDS: GABAPENTIN 300 MG CAP PO SCH ×4 (08:51→21:05)
[2021-08-04] MEDS: traMADol 50 MG TAB PO PRN ×2 (08:51→16:30)
--- NOTE | 2021-08-04 11:50 | P.PN ---
Progress Note - Text Progress Note Date: 08/04/21 Interval History: Patient was seen resting in bed and was directable and agreeable to speak with resume writer in the office. The patient does express some future orientation today. He states that he is feeling better with the addition of librium to deal with withdrawal symptoms. He denies any issues with sleep or appetite today. He reports no side effects of the medication. He expresses future orientation and a desire to quit drugs and controlled substances. Mental Status Exam: General Appearance: Patient appears to be stated age is alert, directable, and cooperative. Obese body habitus. Improved hygiene and grooming. Behavior: Patient is calmly seated without any agitated behavior. Eye contact is appropriate. Speech: Patient's speech is fluent and nonpressured. Mood/Affect: Mood is improving mildly, affect is congruent and constricted. Suicidality/Homicidality: Patient denies having any suicidal or homicidal ideation intent or plan. Perceptions: Patient denies any visual hallucinations and denies any auditory hallucinations Though content/process: There is no evidence of any delusional thought content and thought process is linear and goal-directed. Memory and concentration: AOX3, grossly intact for the purposes of this session Judgment and insight: Improving mildly Vital Signs Temp 97.5 F L 08/04/21 01:08 Pulse 107 H 08/04/21 01:08 Resp 16 08/04/21 01:08 BP 115/71 08/04/21 01:08 Pulse Ox 100 08/04/21 01:08 Assessment Acute bereavement Acute stress reaction Bipolar disorder, unspecified Autism spectrum disorder Amphetamine abuse Opiate use disorder Nicotine dependence History of polysubstance abuse Plan: -Patient continues to meet criteria for inpatient psychiatric admission for symptom stabilization and safety. Patient has signed adult voluntary form and medication consent and was placed in patient's chart. -Medications: Continue gabapentin 300 mg by mouth 4 times a day profitably is for anxiety and neuropathic pain Discontinue Zyprexa and continue Geodon 40 mg by mouth twice a day with meals for mood stabilization/psychosis -When necessary Ativan and Haldol for agitation/aggression. -NRT - nicotine patch -SW on board for discharge planning. Encouraged the patient to participate in milieu.
[2021-08-04] MEDS: traZODone HCL 50 MG TAB PO PRN (21:06)
[2021-08-05] MEDS: NICOTINE 14MG/24HR PATCH TRANSDERM SCH (08:56)
[2021-08-05] MEDS: GABAPENTIN 300 MG CAP PO SCH ×4 (08:57→20:06)
[2021-08-05] MEDS: ZIPRASIDONE 20 MG CAP PO SCH ×2 (08:57→16:33)
[2021-08-05] MEDS: chlordiazePOXIDE 25 MG CAP PO SCH ×2 (08:58→20:06)
[2021-08-05] MEDS: traMADol 50 MG TAB PO PRN ×3 (08:59→22:36)
[2021-08-05] MEDS: LORazepam 1 MG TAB PO PRN ×2 (10:01→16:32)
--- NOTE | 2021-08-05 12:59 | P.PN ---
Progress Note - Text Progress Note Date: 08/05/21 Interval History: Patient was seen resting in bed and was directable and agreeable to speak with comic writer in the office. Patient expresses a strong desire to go to rehab shortly after his discharge. He does state that the Librium has been beneficial however was informed that this medication would not be continued in the outpatient setting and if it is, will be limited. He is not endorsing any suicidal or homicidal ideation, intention,/or plan. He is not reporting any paranoia or delusions. He denies any auditory or visual hallucinations. He denies any significant issues regarding his sleep or his appetite. He does express some future orientation and a strong desire to get better. Mental Status Exam: General Appearance: Patient appears to be stated age is alert, directable, and cooperative. Obese body habitus. Improved hygiene and grooming. Behavior: Patient is calmly seated without any agitated behavior. Eye contact is appropriate. Speech: Patient's speech is fluent and nonpressured. Mood/Affect: Mood is improving mildly, affect is congruent and euthymic. Suicidality/Homicidality: Patient denies having any suicidal or homicidal ideation intent or plan. Perceptions: Patient denies any visual hallucinations and denies any auditory hallucinations Though content/process: There is no evidence of any delusional thought content and thought process is linear and goal-directed. Future oriented. Memory and concentration: AOX3, grossly intact for the purposes of this session Judgment and insight: Improving mildly Vital Signs Temp 97.1 F L 08/05/21 06:10 Pulse 94 08/05/21 06:10 Resp 18 08/05/21 06:10 BP 124/78 08/05/21 06:10 Pulse Ox 100 08/04/21 01:08 Assessment Acute bereavement Acute stress reaction Bipolar disorder, unspecified Autism spectrum disorder Amphetamine abuse Opiate use disorder Nicotine dependence History of polysubstance abuse Plan: -Patient continues to meet criteria for inpatient psychiatric admission for symptom stabilization and safety. Patient has signed adult voluntary form and medication consent and was placed in patient's chart. -Medications: Continue gabapentin 300 mg by mouth 4 times a day profitably is for anxiety and neuropathic pain Continue Geodon 40 mg by mouth twice a day with meals for mood stabilization/psychosis Continue Librium at 25 mg by mouth twice a day -When necessary Ativan and Haldol for agitation/aggression. -NRT - nicotine patch -SW on board for discharge planning. Encouraged the patient to participate in milieu.
[2021-08-05] MEDS: traZODone HCL 50 MG TAB PO PRN (23:38)
[2021-08-06 07:08] VITALS: RESP 14; TEMP 97.7
[2021-08-06] MEDS: GABAPENTIN 300 MG CAP PO SCH (08:06)
[2021-08-06] MEDS: chlordiazePOXIDE 25 MG CAP PO SCH (08:06)
[2021-08-06] MEDS: NICOTINE 14MG/24HR PATCH TRANSDERM SCH (08:06)
[2021-08-06] MEDS: ZIPRASIDONE 20 MG CAP PO SCH (08:06)
[2021-08-06] MEDS: traMADol 50 MG TAB PO PRN (08:08)
[2021-08-06] MEDS: LORazepam 1 MG TAB PO PRN (10:07)
[2021-08-06 10:09] VITALS: BP 123/69; PULSE 113
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
== END 2021-08-06 12:40 | disposition home or self-care (01) | DRG 885 ==
LOC: EC 16:08 → 3MHU 21:59
PROVIDERS: ADMIT Psychiatry & Neurology Psychiatry; ATTEND Psychiatry & Neurology Psychiatry
DX: F31.9 Bipolar disorder, unspecified (principal); F11.20 Opioid dependence, uncomplicated; F19.239 Other psychoactive substance dependence with withdrawal, unspecified; B19.20 Unspecified viral hepatitis C without hepatic coma; E78.5 Hyperlipidemia, unspecified; F12.90 Cannabis use, unspecified, uncomplicated; F15.10 Other stimulant abuse, uncomplicated; F17.200 Nicotine dependence, unspecified, uncomplicated; F20.9 Schizophrenia, unspecified; F41.9 Anxiety disorder, unspecified; F43.0 Acute stress reaction; F84.0 Autistic disorder; F90.9 Attention-deficit hyperactivity disorder, unspecified type; G40.909 Epilepsy, unspecified, not intractable, without status epilepticus; G89.4 Chronic pain syndrome; Z63.4 Disappearance and death of family member; M41.9 Scoliosis, unspecified; S00.33XA Contusion of nose, initial encounter; S16.1XXA Strain of muscle, fascia and tendon at neck level, initial encounter; Y04.0XXA Assault by unarmed brawl or fight, initial encounter; Z79.899 Other long term (current) drug therapy; Z81.8 Family history of other mental and behavioral disorders; Z91.51 Personal history of suicidal behavior; Z20.822 Contact with and (suspected) exposure to COVID-19
CPT/HCPCS: 70160; 72050; 80053; 80061; 80306; 82075; 83036; 84443; 85025; 87635; 99285

== ENCOUNTER 2022-06-17 14:28 | Emergency (ER) | payer OTHER ==
[2022-06-17 15:17] VITALS: BP 140/88; TEMP 97.7
[2022-06-17] MEDS ORDERED: ALPRAZolam 1 MG TAB PO STA (16:31)
--- NOTE | 2022-06-17 16:34 | ED ---
General Adult HPI - General Chief complaint: Psychiatric Symptoms Stated complaint: SADAF Time Seen by Provider: 06/17/22 15:56 Source: patient Mode of arrival: ambulatory Limitations: no limitations - History of Present Illness Initial comments: Dictation was produced using [employer] dictation software. please excuse any grammatical, word or spelling errors. Chief Complaint: 27-year-old male presents with shortness of breath History of Present Illness: 27-year-old male who sent to the emergency department from [facility] for shortness of breath. Patient has been trying to abstain from multiple drugs that he was addicted to. He states that he is having significant withdrawal symptoms. He feels significant angst. Patient states that he has been addicted to opiates, marijuana and and multiple other substances. 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 Patient is scheduled to be admitted to detox facility in a couple days. Patient states that he admitted to [facility] that he is having some shortness of breath. Told to come to the ER. Patient has any cough. Believes that his shortness of breath is from withdrawal symptoms. Denies any cough. No fever night sweats. The ROS documented in this emergency department record has been reviewed and confirmed by me. Those systems with pertinent positive or negative responses have been documented in the HPI. All other systems are other negative and/or noncontributory. PHYSICAL EXAM: General Impression: Alert and oriented x3, not in acute distress HEENT: Normocephalic atraumatic, extra-ocular movements intact, pupils equal and reactive to light bilaterally, mucous membranes moist. Cardiovascular: Heart regular rate and rhythm Chest: Able to complete full sentences, no retractions, no tachypnea, lungs clear to auscultation bilaterally Abdomen: abdomen soft, non-tender, non-distended, no organomegaly Musculoskeletal: Pulses present and equal in all extremities, no peripheral edema Motor: no focal deficits noted Neurological: CN II-XII grossly intact, no focal motor or sensory deficits noted Skin: Intact with no visualized rashes Psych: Normal affect and mood ED course: 27-year-old male presents emergency department for shortness of breath. Physical examination is unremarkable. All signs upon arrival shows her to 120. Rest vital signs within acceptable limits. Patient not showing any signs of respiratory distress. Patient's alleged shortness of breath is likely secondary to opiate withdrawals. He has not had any opiates or drugs in 3-4 days. X-rays unremarkable. Patient reevaluated bedside at 5:20 PM finally stable medical condition. Patient be discharged. - Related Data Home Medications Medication Instructions Recorded Confirmed traMADol HCL [Ultram] 50 mg PO TID 02/21/16 07/31/21 Previous Rx's Medication Instructions Recorded Gabapentin [Neurontin] 300 mg PO QID 30 Days cap 08/06/21 Nicotine 14Mg/24Hr Patch [Habitrol] 1 patch TRANSDERM DAILY 30 Days 08/06/21 patch Ziprasidone [Geodon] 40 mg PO BID-W/MEALS 30 Days cap 08/06/21 chlordiazePOXIDE HCl [Librium] 25 mg PO BID 3 Days cap 08/06/21 ALPRAZolam [Xanax] 1 mg PO ONCE 1 Days #1 tab 06/17/22 Allergies Allergy/AdvReac Type Severity Reaction Status Date / Time No Known Allergies Allergy Verified 07/31/21 21:08 Review of Systems ROS Statement: Those systems with pertinent positive or pertinent negative responses have been documented in the HPI. ROS Other: All systems not noted in ROS Statement are negative. Past Medical History Past Medical History: Seizure Disorder Additional Past Medical History / Comment(s): autism/asperger's syndrome, s coliosis, hep c, history of IV drug abuse, pt states that the medication trileptal gave him sz at age 15 none since then History of Any Multi-Drug Resistant Organisms: None Reported Past Surgical History: Tonsillectomy Additional Past Anesthesia/Blood Transfusion Reaction / Comment(s): No history of prior surgeries. No previous blood transfusions. Past Psychological History: ADD/ADHD, Depression, Schizophrenia Smoking Status: Current every day smoker Past Drug Use History: Cocaine, Heroin, IV Drug Use, Marijuana, Methamphetamine, Opiates - Past Family History Father Additional Family Medical History / Comment(s): Father is 52 years of age and has history of depression and fibromyalgia. Pt is - on 07/28/21 per patient. Mother Additional Family Medical History / Comment(s): Mother is age 56 with history of anxiety. Brother(s) Additional Family Medical History / Comment(s): He has 2 brothers with no major medical problems. Patient has 1 sister with no major medical problems. He does not have any sisters. General Exam Limitations: no limitations Course Vital Signs 06/17/22 15:15 Temperature 97.7 F Pulse Rate 120 H Respiratory 20 Rate Blood Pressure 140/88 O2 Sat by Pulse 100 Oximetry Disposition Clinical Impression: Drug withdrawal Disposition: HOME SELF-CARE Condition: Good Instructions (If sedation given, give patient instructions): Opioid Use Disorder (ED) Prescriptions: ALPRAZolam [Xanax] 1 mg PO ONCE 1 Days #1 tab Is patient prescribed a controlled substance at d/c from ED?: Yes If prescribed controlled substance>3 days was MAPS reviewed?: Prescribed <3 Days Referrals: None,Stated [Primary Care Provider] - 1-2 days Time of Disposition: 17:22
--- NOTE | 2022-06-17 17:06 | XR ---
EXAMINATION TYPE: XR chest 2V DATE OF EXAM: 06/17/2022 4:39 PM COMPARISON: None TECHNIQUE: XR chest 2V Frontal and lateral views of the chest. CLINICAL INDICATION:Male, 27 years old with history of dyspnea; FINDINGS: Lungs/Pleura: There is no evidence of pleural effusion, focal consolidation, or pneumothorax. Pulmonary vascularity: Unremarkable. Heart/mediastinum: Cardiomediastinal silhouette is unremarkable. Musculoskeletal: No acute osseous pathology. IMPRESSION: No acute cardiopulmonary disease/process.
[2022-06-17 17:30] VITALS: PULSE 92; RESP 18
== END 2022-06-17 18:05 | disposition home or self-care (01) ==
LOC: EC 14:28
DX: F11.93 Opioid use, unspecified with withdrawal (principal); F32.A Depression, unspecified; F12.90 Cannabis use, unspecified, uncomplicated; Z79.899 Other long term (current) drug therapy
CPT/HCPCS: 71046; 99284

== ENCOUNTER 2022-07-26 13:11 | Emergency (ER) | payer OTHER ==
--- NOTE | 2022-07-26 13:50 | ED ---
General Adult HPI - General Chief complaint: Recheck/Abnormal Lab/Rx Stated complaint: rx refill Time Seen by Provider: 07/26/22 13:21 Source: patient, family, RN notes reviewed, old records reviewed Mode of arrival: ambulatory Limitations: no limitations - History of Present Illness Initial comments: 27-year-old male patient presents to the emergency room for refill on his Suboxone, Seroquel and Lyrica. Patient states he sees Dr. Faustin and has been getting a 1 week supply at a time. He is scheduled to see him on Friday. Severity scale (1-10): 0 - Related Data Home Medications Medication Instructions Recorded Confirmed traMADol HCL [Ultram] 50 mg PO TID 02/21/16 07/31/21 Previous Rx's Medication Instructions Recorded Gabapentin [Neurontin] 300 mg PO QID 30 Days cap 08/06/21 Nicotine 14Mg/24Hr Patch [Habitrol] 1 patch TRANSDERM DAILY 30 Days 08/06/21 patch Ziprasidone [Geodon] 40 mg PO BID-W/MEALS 30 Days cap 08/06/21 chlordiazePOXIDE HCl [Librium] 25 mg PO BID 3 Days cap 08/06/21 ALPRAZolam [Xanax] 1 mg PO ONCE 1 Days #1 tab 06/17/22 Pregabalin 100 mg PO BID 3 Days #6 cap 07/26/22 Allergies Allergy/AdvReac Type Severity Reaction Status Date / Time No Known Allergies Allergy Verified 07/26/22 13:15 Review of Systems ROS Statement: Those systems with pertinent positive or pertinent negative responses have been documented in the HPI. ROS Other: All systems not noted in ROS Statement are negative. Past Medical History Past Medical History: Seizure Disorder Additional Past Medical History / Comment(s): autism/asperger's syndrome, scoliosis, hep c, history of IV drug abuse, pt states that the medication trileptal gave him sz at age 15 none since then History of Any Multi-Drug Resistant Organisms: None Reported Past Surgical History: Tonsillectomy Additional Past Anesthesia/Blood Transfusion Reaction / Comment(s): No history of prior surgeries. No previous blood transfusions. Past Psychological History: ADD/ADHD, Depression, Schizophrenia Smoking Status: Current every day smoker Past Alcohol Use History: None Reported Past Drug Use History: Cocaine, Heroin, IV Drug Use, Marijuana, Methamphetamine, Opiates - Past Family History Father Additional Family Medical History / Comment(s): Father is 52 years of age and has history of depression and fibromyalgia. Pt is - on 07/28/21 per patient. Mother Additional Family Medical History / Comment(s): Mother is age 56 with history of anxiety. Brother(s) Additional Family Medical History / Comment(s): He has 2 brothers with no major medical problems. Patient has 1 sister with no major medical problems. He does not have any sisters. General Exam Limitations: no limitations Course Vital Signs 07/26/22 07/26/22 13:12 14:40 Temperature 98 F 97.8 F Pulse Rate 92 87 Respiratory 20 18 Rate Blood Pressure 109/71 110/67 O2 Sat by Pulse 99 96 Oximetry Medical Decision Making - Medical Decision Making Discussed with Dr. Damon who is agreeable to prescribing Lyrica. I explained to the patient and family that we are unable to prescribe Suboxone and he needs to follow up with Dr. Faustin or [facility]. He is agreeable to this. Disposition Clinical Impression: Medication refill Disposition: HOME SELF-CARE Condition: Good Instructions (If sedation given, give patient instructions): Medicine Refill (ED) Additional Instructions: Take medication as prescribed. Follow-up with Dr. Faustin on Friday as scheduled. You can also contact [facility]. Prescriptions: Pregabalin 100 mg PO BID 3 Days #6 cap Is patient prescribed a controlled substance at d/c from ED?: No Referrals: Alfredo Faustin MD [Primary Care Provider] - 1-2 days Time of Disposition: 13:50
[2022-07-26 14:44] VITALS: BP 110/67; PULSE 87; RESP 18; TEMP 97.8
== END 2022-07-26 14:42 | disposition home or self-care (01) ==
LOC: EC 13:11
DX: Z76.0 Encounter for issue of repeat prescription (principal); F90.9 Attention-deficit hyperactivity disorder, unspecified type; F32.A Depression, unspecified; F17.200 Nicotine dependence, unspecified, uncomplicated; F12.90 Cannabis use, unspecified, uncomplicated; F14.90 Cocaine use, unspecified, uncomplicated; F11.90 Opioid use, unspecified, uncomplicated; F15.10 Other stimulant abuse, uncomplicated
CPT/HCPCS: 99282

== ENCOUNTER 2023-12-12 02:59 | Emergency (ER) | payer OTHER ==
[2023-12-12 03:05] LABS: Glucose,Whole Blood 108 mg/dL (70-110)
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
[2023-12-12] MEDS: SODIUM CHLORIDE 0.9% 1,000 ML IV STA (03:25)
[2023-12-12 03:27] LABS: ALT 107 U/L (4-49); AST 111 U/L (17-59); African American GFR (CKD) >90 (>60 ml/min/1.73 sqM); Alcohol <10 mg/dL; Alkaline Phosphatase 78 U/L (38-126); Anion Gap 12 mmol/L; Blood Urea Nitrogen 13 mg/dL (9-20); Calcium 9.2 mg/dL (8.4-10.2); Carbon Dioxide 23 mmol/L (22-30); Chloride 106 mmol/L (98-107); Glucose 113 mg/dL (74-99); Non-African American GFR(CKD) >90 (>60 ml/min/1.73 sqM); Potassium 3.8 mmol/L (3.5-5.1); Sodium 141 mmol/L (137-145); Total Bilirubin 0.8 mg/dL (0.2-1.3); Total Protein 7.5 g/dL (6.3-8.2)
--- NOTE | 2023-12-12 04:18 | CT ---
EXAM: CT Chest With Intravenous Contrast CLINICAL HISTORY: ITS.REASON CT Reason: trauma TECHNIQUE: Axial computed tomography images of the chest with intravenous contrast. CTDI is 10.4 mGy and DLP is 788.1 mGy-cm. This CT exam was performed using one or more of the following dose reduction techniques: automated exposure control, adjustment of the mA and/or kV according to patient size, and/or use of iterative reconstruction technique. COMPARISON: No relevant prior studies available. FINDINGS: Lungs: Mild dependent atelectasis. No focal infiltrate.. Pleural space: Unremarkable. No pneumothorax. No pleural effusion. Heart: Unremarkable. No cardiomegaly. No significant pericardial effusion. No significant coronary artery calcifications. Bones/joints: Unremarkable. No acute fracture. Soft tissues: Unremarkable. Vasculature: Unremarkable. No thoracic aortic aneurysm. Lymph nodes: Unremarkable. No enlarged lymph nodes. IMPRESSION: No acute post-traumatic abnormality.. EXAM: CT Abdomen and Pelvis With Intravenous Contrast CLINICAL HISTORY: ITS.REASON CT Reason: trauma TECHNIQUE: Axial computed tomography images of the abdomen and pelvis with intravenous contrast. CTDI is 23.3 mGy and DLP is 1006.6 mGy-cm. This CT exam was performed using one or more of the following dose reduction techniques: automated exposure control, adjustment of the mA and/or kV according to patient size, and/or use of iterative reconstruction technique. COMPARISON: No relevant prior studies available. FINDINGS: ABDOMEN: Liver: Unremarkable. No mass. Gallbladder and bile ducts: Unremarkable. No calcified stones. No ductal dilation. Pancreas: Unremarkable. No mass. No ductal dilation. Spleen: Unremarkable. No splenomegaly. Adrenals: Unremarkable. No mass. Kidneys and ureters: No obstructive uropathy. No obstructing renal or ureteral calculi. No hydronephrosis or hydroureter. Stomach and bowel: No obstruction or ileus. No evidence for diverticulitis. PELVIS: Appendix: No findings to suggest acute appendicitis. Bladder: Unremarkable. No mass. Reproductive: Unremarkable as visualized. ABDOMEN and PELVIS: Intraperitoneal space: No free air. No free fluid. Bones/joints: No acute fracture. Soft tissues: Unremarkable. Vasculature: Unremarkable. No abdominal aortic aneurysm. Lymph nodes: Unremarkable. No enlarged lymph nodes.
[2023-12-12 04:27] LABS: Basophils # (A) 0.1 k/uL (0-0.2); Basophils % (A) 1 %; Eosinophils # (A) 0.4 k/uL (0-0.7); Eosinophils % (A) 4 %; HCT 41.9 % (39.0-53.0); HGB 14.1 gm/dL (13.0-17.5); Lymphocytes # (A) 3.7 k/uL (1.0-4.8); Lymphocytes % (A) 44 %; MCH 31.2 pg (25.0-35.0); MCHC 33.7 g/dL (31.0-37.0); MCV 92.6 fL (80.0-100.0); Mean Platelet Volume 11.2; Monocytes # (A) 0.4 k/uL (0-1.0); Monocytes % (A) 5 %; Neutrophils # (A) 3.5 k/uL (1.3-7.7); Neutrophils % (A) 42 %; Platelet Count 234 k/uL (150-450); RBC 4.53 m/uL (4.30-5.90); RDW 12.6 % (11.5-15.5); WBC 8.3 k/uL (3.8-10.6)
--- NOTE | 2023-12-12 04:27 | CT ---
EXAM: CT Head Without Intravenous Contrast CLINICAL HISTORY: trauma TECHNIQUE: Axial computed tomography images of the head/brain without intravenous contrast. CTDI is 45.2 mGy and DLP is 1401 mGy-cm. This CT exam was performed using one or more of the following dose reduction techniques: automated exposure control, adjustment of the mA and/or kV according to patient size, and/or use of iterative reconstruction technique. COMPARISON: No relevant prior studies available. FINDINGS: Brain: No acute stroke. No hemorrhage. No abnormal extra-axial fluid collection. No significant white matter disease. Ventricles: No hydrocephalus. No midline shift. Bones/joints: Unremarkable. No acute fracture. Soft tissues: Unremarkable. Sinuses: Unremarkable as visualized. No acute sinusitis. IMPRESSION: No acute post-traumatic intracranial abnormality. EXAM: CT Cervical Spine Without Intravenous Contrast CLINICAL HISTORY: trauma TECHNIQUE: Axial computed tomography images of the cervical spine without intravenous contrast. CTDI is 12.8 mGy and DLP is 391.1 mGy-cm. This CT exam was performed using one or more of the following dose reduction techniques: automated exposure control, adjustment of the mA and/or kV according to patient size, and/or use of iterative reconstruction technique. COMPARISON: No relevant prior studies available. FINDINGS: Vertebrae: No acute fracture. Maintenance of height of the vertebral bodies. No subluxation. Discs/spinal canal/neural foramina: Mild degenerative changes at C5-6 and C6-7. Soft tissues: Unremarkable. IMPRESSION: No acute post-traumatic abnormality.
--- NOTE | 2023-12-12 04:34 | CT ---
EXAM: CT Maxillofacial Without Intravenous Contrast CLINICAL HISTORY: trauma TECHNIQUE: Axial computed tomography images of the face without intravenous contrast. CTDI [place] 045.2 [place] [address] mGy-cm. This CT exam was performed using one or more of the following dose reduction techniques: automated exposure control, adjustment of the mA and/or kV according to patient size, and/or use of iterative reconstruction technique. COMPARISON: No relevant prior studies available. FINDINGS: Bones/joints: No acute fracture. Soft tissues: Unremarkable. Orbits: Unremarkable. Sinuses: Unremarkable. No air-fluid levels. IMPRESSION: No acute post-traumatic abnormality.
--- NOTE | 2023-12-12 04:36 | XR ---
EXAM: XR Pelvis, 1 or 2 Views CLINICAL HISTORY: Trauma TECHNIQUE: Frontal view of the pelvis. COMPARISON: No relevant prior studies available. FINDINGS: Bones/joints: No acute fracture. No dislocation. Soft tissues: Minimal contrast material within the distal left ureter post CT abdomen pelvis. Urinary bladder not opacified. IMPRESSION: No acute post-traumatic abnormality.
[2023-12-12 04:37] LABS: INR 1.1 (<1.2); Partial Thromboplastin Time 26.4 sec (22.0-30.0); Prothrombin Time 11.9 sec (10.0-12.5)
--- NOTE | 2023-12-12 04:37 | XR ---
EXAM: XR Chest, 1 View CLINICAL HISTORY: Trauma TECHNIQUE: Frontal view of the chest. COMPARISON: No relevant prior studies available. FINDINGS: Lungs: No infiltrate. No atelectasis. No CHF. Pleural space: No pleural effusion. No pneumothorax. Heart: Unremarkable. No cardiomegaly. Mediastinum: Unremarkable. Normal mediastinal contour. Bones/joints: Unremarkable. No acute fracture. IMPRESSION: No acute post-traumatic abnormality.
[2023-12-12 05:06] LABS: Appearance,Urine Clear (Clear); Bilirubin,Urine Negative (Negative); Blood,Urine Negative (Negative); Color,Urine Light Yellow; Glucose,Urine (UA) Negative (Negative); Ketones,Urine Negative (Negative); Leukocyte Esterase,Urine Negative (Negative); Nitrite,Urine Negative (Negative); Protein,Urine Trace (Negative); Urobilinogen,Urine <2.0 mg/dL (<2.0)
[2023-12-12 05:21] LABS: Amphetamine Screen,Urine Not Detected (NotDetected); Benzodiazepines Screen,Urine Detected (NotDetected); Cocaine Screen,Urine Not Detected (NotDetected); Opiate Screen,Urine Not Detected (NotDetected); Phencyclidine Screen,Urine Not Detected (NotDetected)
[2023-12-12 05:22] LABS: Barbiturate Screen,Urine Not Detected (NotDetected); Methadone Screen, Urine Not Detected (NotDetected); Oxycodone Screen, Urine Not Detected (NotDetected); Tricyclic Antidepressant,Urine Not Detected (NotDetected); Urn Cannabinoid Scrn Detected (NotDetected)
[2023-12-12 09:58] VITALS: BP 102/58; PULSE 64; RESP 16; TEMP 98.1
== END 2023-12-12 09:00 | disposition home or self-care (01) ==
LOC: EC 02:59
DX: Z04.1 Encounter for examination and observation following transport accident (principal); F17.200 Nicotine dependence, unspecified, uncomplicated
CPT/HCPCS: 36415; 93005; 86900; 86901; 80053; 84484; 85025; 85610; 85730; 86850; 81003; 80306; 72170; 71045; 72125; 70486; 70450; 71260; 74177; 99285; 96360; G0390; G0480; Q9967; 80320